=== PATIENT | male | born 1995 | race Caucasian/White ===

== ENCOUNTER 2019-12-28 19:48 | Emergency (ER) | payer OTHER ==
[~2019-12-28] VITALS: Ht 182.9 cm; Wt 80.3 kg
[2019-12-28 22:11] VITALS: BP 126/84
== END 2019-12-28 22:12 | disposition home or self-care (01) ==
LOC: M ED 19:48
DX: S01.111A Laceration without foreign body of right eyelid and periocular area, initial encounter (principal); X58.XXXA Exposure to other specified factors, initial encounter; Y92.018 Other place in single-family (private) house as the place of occurrence of the external cause

== ENCOUNTER → 2024-02-27 | Outpatient (CLI) | payer OTHER ==
[~2024-02-27] MED LIST: PROHANCE 279.3MG/ML 15ML VIAL As Ordered ONE; PROHANCE 279.3MG/ML 5ML VIAL As Ordered ONE
== END ==
LOC: M RAD 15:24
PROVIDERS: ATTEND Audiologist
DX: H90.41 Sensorineural hearing loss, unilateral, right ear, with unrestricted hearing on the contralateral side (principal)
CPT/HCPCS: 70553; A9576